=== PATIENT | male | born 1960 | race Two or more races ===

== ENCOUNTER 2021-11-08 14:08 | Emergency (ER) | payer MEDICARE, OTHER ==
[~2021-11-08] VITALS: Ht 177.8 cm; Wt 95.3 kg
[2021-11-08] MEDS ORDERED: diphenhydrAMINE HCL 50 MG/ML VIAL ONE ×2 (14:43→22:36)
[2021-11-08] MEDS ORDERED: LORAZEPAM INJ 2 MG/ML VIAL ONE ×3 (14:44→22:43)
[2021-11-08] MEDS ORDERED: HALOPERIDOL LACTATE INJ 5 MG/ML VIAL ONE ×2 (14:44→23:04)
[2021-11-08] MEDS ORDERED: HALOPERIDOL LACTATE INJ 5 MG/ML VIAL IM ONE ×2 (15:00→23:30)
[2021-11-08] MEDS ORDERED: LORAZEPAM INJ 2 MG/ML VIAL IM ONE ×3 (15:00→23:00)
[2021-11-08] MEDS ORDERED: diphenhydrAMINE HCL 50 MG/ML VIAL IM ONE ×2 (15:00→23:00)
[2021-11-08 15:01] LABS: BASOPHILS % (AUTO) 0.3 % (0.0-2.0); EOSINOPHILS % (AUTO) 0.7 % (0.0-6.0); HEMATOCRIT 35 % (39-51); HEMOGLOBIN 11.6 g/dL (13.5-17.5); LYMPHOCYTES # (AUTO) 1.3 K/uL (0.8-4.8); LYMPHOCYTES % (AUTO) 18.6 % (20.0-44.0); MEAN CORPUSCULAR HGB CONC 33 g/dl (31.0-36.0); MEAN CORPUSCULAR VOLUME 90 fL (80-96); MONOCYTES # (AUTO) 0.7 K/uL (0.1-1.30); MONOCYTES % (AUTO) 10.6 % (2.0-12.0); NEUTROPHILS # (AUTO) 4.8 K/uL (1.8-8.9); NEUTROPHILS % (AUTO) 69.8 % (43.0-81.0); PLATELET COUNT (AUTO) 202 K/uL (150-450); WHITE BLOOD COUNT (AUTO) 6.9 K/uL (4.3-11.0)
[2021-11-08 15:17] LABS: CALCIUM, SERUM 8.9 mg/dL (8.5-10.1); CARBON DIOXIDE 26 mmol/L (21-32); CHLORIDE 103 mmol/L (98-107); CREATININE 1.5 mg/dL (0.6-1.3); GLUCOSE 336 mg/dL (74-106); POTASSIUM 4.8 mmol/L (3.5-5.1); SODIUM SERUM 139 mmol/L (136-145); UREA NITROGEN, BLOOD 40 mg/dL (7-18)
[2021-11-08 15:22] LABS: ALANINE AMINOTRANSFERASE 15 U/L (12-78); ALBUMIN 3.2 g/dL (3.4-5.0); ALCOHOL, BLOOD < 3 mg/dL (0-0); ALKALINE PHOSPHATASE 98 U/L (46-116); ASPARTATE AMINOTRANSFERASE 13 U/L (15-37); BILIRUBIN,DIRECT 0.1 mg/dL (0.0-0.2); BILIRUBIN,TOTAL 0.3 mg/dL (0.2-1.0); TOTAL PROTEIN, SERUM 6.6 g/dL (6.4-8.2)
[2021-11-08 15:23] LABS: ACETAMINOPHEN < 0 ug/ml (10-30)
--- NOTE | 2021-11-08 16:24 | NUR ---
KALLIE VEGA [phone] ASKED FOR NEXT CLINICIAN TO BE CALLED.
[2021-11-08] MEDS ORDERED: OLANZAPINE 10 MG VIAL IM ONE ×2 (17:36→18:00)
[2021-11-08 17:43] LABS: BILIRUBIN,URINE NEGATIVE (NEGATIVE); COLOR,URINE YELLOW (YELLOW); LEUKOCYTE ESTERASE ,URINE NEGATIVE (NEGATIVE); NITRITE, URINE NEGATIVE (NEGATIVE); PROTEIN,URINE NEGATIVE (NEGATIVE); UGLUCOSE 500 MG/DL mg/dL (NEGATIVE); UROBILINOGEN,URINE 0.2 EU/dL (0.2)
[2021-11-08 17:54] LABS: BACTERIA,URINE Few /HPF (None Seen); SQUAMOUS EPITHELIAL CELL,UR Few /HPF (None Seen); WBC,URINE 0-2 /HPF (0-3)
--- NOTE | 2021-11-09 | NUR ---
PATIENT IN BED SLEEPING, EASY TO AROUSE. PATIENT VSS. PATIENT CONNECTED TO CARDIAC AND POX MONITOR. WILL CONTINUE TO MONITOR.
[2021-11-09] MEDS ORDERED: OLANZAPINE 10 MG VIAL IM ONE ×2 (01:30→01:34)
[2021-11-09] MEDS ORDERED: diphenhydrAMINE HCL 50 MG/ML VIAL IM ONE (01:30)
[2021-11-09] MEDS ORDERED: LORAZEPAM INJ 2 MG/ML VIAL IM ONE (01:30)
[2021-11-09] MEDS ORDERED: diphenhydrAMINE HCL 50 MG/ML VIAL ONE (01:34)
[2021-11-09] MEDS ORDERED: LORAZEPAM INJ 2 MG/ML VIAL ONE (01:35)
--- NOTE | 2021-11-09 02:31 | NUR ---
PT TAKEN TO CT IN STABLE CONDITION
--- NOTE | 2021-11-09 04:25 | NUR ---
URINE COLLECTED AND SENT TO LAB
--- NOTE | 2021-11-09 05:32 | NUR ---
[facility] FOR BLS TRANSPORT FOR PT BACK TO [facility] @ [phone]
[2021-11-09] MEDS ORDERED: hydrALAZINE HCL IV 20 MG VIAL ONE (06:22)
[2021-11-09] MEDS ORDERED: IV NS 0.9% 1,000 ML BAG IV ONE (06:30)
[2021-11-09] MEDS ORDERED: hydrALAZINE HCL IV 20 MG VIAL IV ONE (06:30)
--- NOTE | 2021-11-09 07:01 | NUR ---
CALLED SIRI HURTADO FOR REPORT.
--- NOTE | 2021-11-09 08:25 | NUR ---
RE[facility]GLESIA ORLANDO [facility]
--- NOTE | 2021-11-09 08:35 | NUR ---
[facility] CALLED FOR TRANSPORT ETA 60 MINS PER JUAN.
--- NOTE | 2021-11-09 09:44 | NUR ---
CALLED [facility] NEW ETA 15 MINS PER JUAN.
--- NOTE | 2021-11-09 09:45 | NUR ---
AMBULATED TO THE BATHROOM INDEPENDENTLY WITH STEADY GAIT
[2021-11-09 10:00] VITALS: BP 142/93
--- NOTE | 2021-11-09 10:09 | NUR ---
PICKED UP BY TRANSPORT IN STABLE CONDITION
--- NOTE | 2021-11-09 10:23 | NUR ---
IV removed. Catheter intact and site benign. Pressure and 4x4 applied to site. No bleeding noted.Patient discharged to home in stable condition. Written and verbal after care instructions given. Patient verbalizes understanding of instruction.
== END 2021-11-09 10:23 ==
LOC: ER 14:23
DX: R46.1 Bizarre personal appearance (principal); R41.82 Altered mental status, unspecified; I10 Essential (primary) hypertension; J44.9 Chronic obstructive pulmonary disease, unspecified; E11.9 Type 2 diabetes mellitus without complications; Z87.39 Personal history of other diseases of the musculoskeletal system and connective tissue
CPT/HCPCS: 36415; 70450; 80048; 80076; 80143; 80307; 80320; 81001; 82962; 85025; 96361; 96372 ×2; 96374; 99285; J0360; J1200 ×3; J1630 ×2; J2060 ×4; J3490 ×2; J7030; G0480